=== PATIENT | female | born 1985 | race Caucasian/White ===

== ENCOUNTER 2020-09-18 10:36 | Outpatient (CLI) | payer MEDICAID, SELFPAY ==
--- NOTE | 2020-09-18 13:45 | DI.RAD_ITS ---
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 COMPARISON: No exams were available for comparison TECHNIQUE: 2D digital imaging was performed. FINDINGS: There is no evidence of fracture or dislocation. No lytic or blastic bony lesions are visible. The hip joint spaces are well maintained. The SI joints joints appear normal. IMPRESSION: Negative pelvis and right hip. DATA REPOSITORY: RADIATION DOSE DELIVERED:
== END 2020-09-18 10:56 ==
PROVIDERS: PCP Physician Assistant Medical; Visit Provider Internal Medicine
DX: M25.551 Pain in right hip (principal); C79.51 Secondary malignant neoplasm of bone; C50.919 Malignant neoplasm of unspecified site of unspecified female breast
CPT/HCPCS: 73502

== ENCOUNTER 2020-10-09 13:19 | Outpatient (REF) | payer MEDICAID, SELFPAY ==
[2020-10-09 15:12] LABS: Bilirubin Negative (Negative); Blood Negative (Negative); Clarity Turbid (Clear); Glucose Negative (Negative); Ketones Negative (Negative); Leukocyte Esterase Negative (Negative); Nitrite Negative (Negative); Specific Gravity >= 1.030 (1.005-1.025); Urobilinogen 0.2 EU/dL (Up TO 0.2); pH 5.5 (5-8)
== END 2020-10-09 13:20 | disposition home or self-care (01) ==
LOC: LBN 13:19
PROVIDERS: PCP Physician Assistant Medical; Visit Provider Radiology Radiation Oncology
DX: R39.15 Urgency of urination (principal)
CPT/HCPCS: 81003

== ENCOUNTER 2020-11-13 03:47 | Outpatient (CLI) | payer MEDICAID, SELFPAY ==
[2020-11-13 09:33] LABS: ALT 34 U/L (14-59); AST 19 U/L (15-37); Absolute Basophil Count 0.01 10^3/uL (0.0-0.2); Absolute Eosinophil Count 0.07 10^3/uL (0.0-0.7); Absolute Lymphocyte Count 0.56 10^3/uL (1.2-3.4); Absolute Monocyte Count 0.11 10^3/uL (0.1-0.8); Albumin 3.5 g/dL (3.4-5.0); Alkaline Phosphatase 82 U/L (46-116); Anion Gap 11.8 mmol/L (3-11); BUN 14 mg/dL (7-18); Basophils % 0.5; Bilirubin, Total 0.2 mg/dL (0.2-1.0); CO2 27.2 mmol/L (21.0-32.0); CREATININE 0.9 mg/dL (0.55-1.02); Calcium 8.9 mg/dL (8.5-10.1); Chloride 105 mmol/L (98-107); Eosinophils % 3.8; Glucose 109 mg/dL (74-106); HCT 31.1 % (36.0-46.0); HGB 9.7 g/dL (11.2-15.7); Lymphocytes % 30.3; MCH 27.2 pg (27.0-33.0); MCHC 31.2 % (32.0-36.0); MCV 87.1 fL (80-95); MPV 9.3 fL (8.0-11.0); Monocytes % 5.9; Neutrophils % 59.5; Nucleated RBC 0 %; Platelet Count 242 10^3/uL (130-400); Potassium 3.2 mmol/L (3.5-5.1); RBC 3.57 10^6/uL (3.93-5.22); RDW 14.5 % (11.7-14.6); RDW-SD 45.1 fL; Sodium 144 mmol/L (136-145); Total Protein 7.5 g/dL (6.4-8.2)
[2020-11-13 10:02] LABS: WBC 1.85 10^3/uL (4.4-10.8)
[2020-11-13 10:08] LABS: Diff Comment Diff Reviewed; RBC Morphology Normal
== END 2020-11-13 03:48 | disposition home or self-care (01) ==
LOC: LBO 03:47
PROVIDERS: PCP Physician Assistant Medical; Visit Provider Internal Medicine
DX: C50.912 Malignant neoplasm of unspecified site of left female breast (principal); C79.51 Secondary malignant neoplasm of bone
CPT/HCPCS: 36415; 80053; 85025

== ENCOUNTER 2020-11-20 03:40 | Outpatient (CLI) | payer MEDICAID, SELFPAY ==
[2020-11-20 10:06] LABS: Absolute Basophil Count 0.01 10^3/uL (0.0-0.2); Absolute Eosinophil Count 0.04 10^3/uL (0.0-0.7); Basophils % 0.5; Nucleated RBC 0 %
[2020-11-20 10:08] LABS: Absolute Lymphocyte Count 0.99 10^3/uL (1.2-3.4); Absolute Monocyte Count 0.16 10^3/uL (0.1-0.8); Absolute Neutrophil Count 0.78 10^3/uL (1.2-6.7); HCT 30.6 % (36.0-46.0); HGB 9.9 g/dL (11.2-15.7); MCH 27.7 pg (27.0-33.0); MCHC 32.4 % (32.0-36.0); MCV 85.7 fL (80-95); MPV 9.6 fL (8.0-11.0); Monocytes % 8.1; Neutrophils % 39.4; RBC 3.57 10^6/uL (3.93-5.22); RDW-SD 44.9 fL
[2020-11-20 10:14] LABS: WBC 1.98 10^3/uL (4.4-10.8)
[2020-11-20 10:15] LABS: Platelet Count 174 10^3/uL (130-400)
[2020-11-20 10:16] LABS: Diff Comment Agrees w/ Instrument; Microcytosis 1+; Poikilocytes 1+
[2020-11-20 10:25] LABS: ALT 35 U/L (14-59); AST 17 U/L (15-37); Alkaline Phosphatase 83 U/L (46-116); Anion Gap 9.7 mmol/L (3-11); BUN 14 mg/dL (7-18); Bilirubin, Total 0.3 mg/dL (0.2-1.0); CO2 28.3 mmol/L (21.0-32.0); Calcium 9.1 mg/dL (8.5-10.1); Chloride 104 mmol/L (98-107); Glucose 120 mg/dL (74-106); Potassium 3.9 mmol/L (3.5-5.1); Sodium 142 mmol/L (136-145); Total Protein 7.2 g/dL (6.4-8.2)
== END 2020-11-20 03:41 | disposition home or self-care (01) ==
LOC: LBO 03:40
PROVIDERS: PCP Physician Assistant Medical; Visit Provider Internal Medicine
DX: C50.912 Malignant neoplasm of unspecified site of left female breast (principal); C79.51 Secondary malignant neoplasm of bone
CPT/HCPCS: 36415; 80053; 85025

== ENCOUNTER 2020-11-27 04:07 | Outpatient (CLI) | payer MEDICAID, SELFPAY ==
[2020-11-27 12:21] LABS: Abs Immature Grans 0.01 10^3/uL (0.0-0.06); Absolute Basophil Count 0.01 10^3/uL (0.0-0.2); Absolute Eosinophil Count 0.03 10^3/uL (0.0-0.7); Absolute Lymphocyte Count 0.66 10^3/uL (1.2-3.4); Absolute Monocyte Count 0.19 10^3/uL (0.1-0.8); Absolute Neutrophil Count 1.13 10^3/uL (1.2-6.7); Basophils % 0.5; Eosinophils % 1.5; HCT 32.7 % (36.0-46.0); HGB 10.5 g/dL (11.2-15.7); Immature Grans % 0.5; Lymphocytes % 32.5; MCHC 32.1 % (32.0-36.0); MCV 87.2 fL (80-95); MPV 9.7 fL (8.0-11.0); Monocytes % 9.4; Neutrophils % 55.6; Nucleated RBC 0 %; Platelet Count 192 10^3/uL (130-400); RBC 3.75 10^6/uL (3.93-5.22); RDW 16.3 % (11.7-14.6); RDW-SD 49.1 fL; WBC 2.03 10^3/uL (4.4-10.8)
[2020-11-27 12:36] LABS: ALT 31 U/L (14-59); AST 19 U/L (15-37); Albumin 3.7 g/dL (3.4-5.0); Alkaline Phosphatase 77 U/L (46-116); Anion Gap 9.7 mmol/L (3-11); BUN 11 mg/dL (7-18); Bilirubin, Total 0.2 mg/dL (0.2-1.0); CO2 26.3 mmol/L (21.0-32.0); CREATININE 0.7 mg/dL (0.55-1.02); Calcium 8.9 mg/dL (8.5-10.1); Chloride 105 mmol/L (98-107); Glucose 180 mg/dL (74-106); Potassium 3.6 mmol/L (3.5-5.1); Sodium 141 mmol/L (136-145); Total Protein 7.2 g/dL (6.4-8.2)
== END 2020-11-27 04:08 | disposition home or self-care (01) ==
LOC: LBO 04:07
PROVIDERS: PCP Physician Assistant Medical; Visit Provider Internal Medicine
DX: C50.912 Malignant neoplasm of unspecified site of left female breast (principal); C77.9 Secondary and unspecified malignant neoplasm of lymph node, unspecified; Z79.899 Other long term (current) drug therapy
CPT/HCPCS: 36415; 80053; 85025

== ENCOUNTER 2020-12-03 13:35 | Outpatient (CLI) | payer MEDICAID, SELFPAY ==
[2020-12-03 13:54] LABS: Absolute Basophil Count 0.02 10^3/uL (0.0-0.2); Absolute Eosinophil Count 0.06 10^3/uL (0.0-0.7); Absolute Lymphocyte Count 0.77 10^3/uL (1.2-3.4); Absolute Monocyte Count 0.24 10^3/uL (0.1-0.8); Absolute Neutrophil Count 1.25 10^3/uL (1.2-6.7); Basophils % 0.9; Eosinophils % 2.6; HCT 33.3 % (36.0-46.0); HGB 10.6 g/dL (11.2-15.7); Lymphocytes % 32.9; MCH 28.1 pg (27.0-33.0); MCHC 31.8 % (32.0-36.0); MCV 88.3 fL (80-95); MPV 9.5 fL (8.0-11.0); Monocytes % 10.3; Neutrophils % 53.3; Nucleated RBC 0 %; Platelet Count 259 10^3/uL (130-400); RBC 3.77 10^6/uL (3.93-5.22); RDW 17.1 % (11.7-14.6); RDW-SD 55.1 fL; WBC 2.34 10^3/uL (4.4-10.8)
[2020-12-03 14:13] LABS: ALT 69 U/L (14-59); AST 91 U/L (15-37); Albumin 3.8 g/dL (3.4-5.0); Alkaline Phosphatase 83 U/L (46-116); Anion Gap 9.6 mmol/L (3-11); BUN 15 mg/dL (7-18); Bilirubin, Total 0.3 mg/dL (0.2-1.0); CO2 27.4 mmol/L (21.0-32.0); CREATININE 0.9 mg/dL (0.55-1.02); Calcium 9.1 mg/dL (8.5-10.1); Chloride 106 mmol/L (98-107); Glucose 120 mg/dL (74-106); Potassium 3.9 mmol/L (3.5-5.1); Sodium 143 mmol/L (136-145); Total Protein 7.4 g/dL (6.4-8.2)
== END 2020-12-03 13:36 | disposition home or self-care (01) ==
LOC: LBO 13:37
PROVIDERS: PCP Physician Assistant Medical; Visit Provider Internal Medicine
DX: C50.912 Malignant neoplasm of unspecified site of left female breast (principal); C79.51 Secondary malignant neoplasm of bone
CPT/HCPCS: 36415; 80053; 85025

== ENCOUNTER 2021-01-02 13:37 | Outpatient (CLI) | payer MEDICAID, SELFPAY ==
[2021-01-02 13:57] LABS: Abs Immature Grans 0.02 10^3/uL (0.0-0.06); Absolute Basophil Count 0.03 10^3/uL (0.0-0.2); Absolute Eosinophil Count 0.09 10^3/uL (0.0-0.7); Absolute Lymphocyte Count 0.82 10^3/uL (1.2-3.4); Absolute Monocyte Count 0.23 10^3/uL (0.1-0.8); Absolute Neutrophil Count 2.22 10^3/uL (1.2-6.7); Basophils % 0.9; Eosinophils % 2.6; HCT 31.7 % (36.0-46.0); HGB 10.6 g/dL (11.2-15.7); Immature Grans % 0.6; MCHC 33.4 % (32.0-36.0); MCV 86.6 fL (80-95); MPV 9.3 fL (8.0-11.0); Monocytes % 6.7; Neutrophils % 65.2; Nucleated RBC 0 %; Platelet Count 218 10^3/uL (130-400); RBC 3.66 10^6/uL (3.93-5.22); RDW 16.1 % (11.7-14.6); RDW-SD 51.8 fL; WBC 3.41 10^3/uL (4.4-10.8)
[2021-01-02 14:09] LABS: ALT 46 U/L (14-59); AST 18 U/L (15-37); Albumin 3.7 g/dL (3.4-5.0); Alkaline Phosphatase 86 U/L (46-116); Anion Gap 11.9 mmol/L (3-11); BUN 12 mg/dL (7-18); Bilirubin, Total 0.2 mg/dL (0.2-1.0); CO2 26.1 mmol/L (21.0-32.0); CREATININE 1.4 mg/dL (0.55-1.02); Calcium 8.7 mg/dL (8.5-10.1); Chloride 104 mmol/L (98-107); Estimated GFR 42.55 (mL/min/1.73m2); Glucose 120 mg/dL (74-106); Potassium 3.8 mmol/L (3.5-5.1); Sodium 142 mmol/L (136-145); Total Protein 7.5 g/dL (6.4-8.2)
== END 2021-01-02 13:38 | disposition home or self-care (01) ==
LOC: LBO 13:42
PROVIDERS: PCP Physician Assistant Medical; Visit Provider Internal Medicine
DX: C50.912 Malignant neoplasm of unspecified site of left female breast (principal); C79.51 Secondary malignant neoplasm of bone
CPT/HCPCS: 36415; 80053; 85025

== ENCOUNTER 2021-02-05 01:02 | Outpatient (CLI) | payer MEDICAID, SELFPAY ==
--- NOTE | 2021-02-05 13:10 | DI.RAD_ITS ---
Exam(s) XR HIP RT COMPLETE AP PELVIS EXAM: XR HIP RT COMPLETE AP PELVIS INDICATION: DIFFUSE KNOWN METASTATIC DISEASE TO PELVIS,RT ACETAB AND RT FEMUR,SURVEILL. COMPARISON: CR XR HIP RT COMPLETE AP PELVIS from 09/18/2020 TECHNIQUE: 2D digital imaging was performed. FINDINGS: There is a mottled appearance of the right superior and inferior pubic rami and acetabulum suggestive of metastatic disease. There is a new round sclerotic focus in the right femoral neck suspicious fo r metastasis. There are healing pathologic nondisplaced fractures seen in the right superior and inf erior pubic rami. The sacroiliac joints and symphysis pubis are intact. No other acute or healing f ractures or dislocations are appreciated. The soft tissues are unremarkable. IMPRESSION: 1. Findings of metastatic disease involving the right hemipelvis and the right femur. 2. Pathologic fractures involving the right superior and inferior pubic rami with evidence of some he aling. DATA REPOSITORY: RADIATION DOSE DELIVERED:
== END 2021-02-05 01:22 ==
PROVIDERS: PCP Physician Assistant Medical; Visit Provider Nurse Practitioner
DX: C79.51 Secondary malignant neoplasm of bone (principal); C80.1 Malignant (primary) neoplasm, unspecified; M84.451D Pathological fracture, right femur, subsequent encounter for fracture with routine healing
CPT/HCPCS: 73502

== ENCOUNTER 2021-02-05 02:29 | Outpatient (CLI) | payer MEDICAID, SELFPAY ==
[2021-02-05 13:40] LABS: HCT 31.5 % (36.0-46.0); HGB 10.4 g/dL (11.2-15.7); MCH 29.5 pg (27.0-33.0); MCV 89.5 fL (80-95); MPV 9.3 fL (8.0-11.0); Nucleated RBC 0 %; Platelet Count 292 10^3/uL (130-400); RBC 3.52 10^6/uL (3.93-5.22); RDW 14.8 % (11.7-14.6); RDW-SD 47.7 fL; WBC 3.28 10^3/uL (4.4-10.8)
[2021-02-05 13:53] LABS: ALT 30 U/L (14-59); AST 18 U/L (15-37); Albumin 4.2 g/dL (3.4-5.0); Alkaline Phosphatase 97 U/L (46-116); Anion Gap 11.7 mmol/L (3-11); BUN 14 mg/dL (7-18); Bilirubin, Total 0.5 mg/dL (0.2-1.0); CO2 27.3 mmol/L (21.0-32.0); CREATININE 1.2 mg/dL (0.55-1.02); Calcium 10.2 mg/dL (8.5-10.1); Chloride 102 mmol/L (98-107); Estimated GFR 50.83 (mL/min/1.73m2); Glucose 105 mg/dL (74-106); Potassium 3.9 mmol/L (3.5-5.1); Sodium 141 mmol/L (136-145); Total Protein 8.3 g/dL (6.4-8.2)
[2021-02-05 13:57] LABS: Absolute Lymphocyte Count 1.05 10^3/uL (1.2-3.4); Absolute Neutrophil Count 2.03 10^3/uL (1.2-6.7)
[2021-02-05 13:58] LABS: Diff Comment Manual Differential; RBC Morphology Normal
== END 2021-02-05 02:30 | disposition home or self-care (01) ==
LOC: LBO 02:29
PROVIDERS: PCP Physician Assistant Medical; Visit Provider Internal Medicine
DX: C50.912 Malignant neoplasm of unspecified site of left female breast (principal); C79.51 Secondary malignant neoplasm of bone
CPT/HCPCS: 36415; 80053; 85025

== ENCOUNTER 2021-03-05 04:10 | Outpatient (CLI) | payer MEDICAID, SELFPAY ==
[2021-03-05 13:05] LABS: Abs Immature Grans 0.08 10^3/uL (0.0-0.06); Absolute Basophil Count 0.03 10^3/uL (0.0-0.2); Absolute Eosinophil Count 0.18 10^3/uL (0.0-0.7); Absolute Lymphocyte Count 0.94 10^3/uL (1.2-3.4); Absolute Monocyte Count 0.65 10^3/uL (0.1-0.8); Basophils % 0.5; Eosinophils % 3.3; HCT 33.6 % (36.0-46.0); HGB 11.2 g/dL (11.2-15.7); Immature Grans % 1.5; Lymphocytes % 17.2; MCH 29.6 pg (27.0-33.0); MCHC 33.3 % (32.0-36.0); MCV 88.9 fL (80-95); MPV 9.4 fL (8.0-11.0); Monocytes % 11.9; Neutrophils % 65.6; Nucleated RBC 0 %; Platelet Count 406 10^3/uL (130-400); RBC 3.78 10^6/uL (3.93-5.22); RDW 13.5 % (11.7-14.6); RDW-SD 43.8 fL; WBC 5.48 10^3/uL (4.4-10.8)
[2021-03-05 13:17] LABS: ALT 117 U/L (14-59); AST 77 U/L (15-37); Albumin 3.9 g/dL (3.4-5.0); Alkaline Phosphatase 134 U/L (46-116); Anion Gap 12.4 mmol/L (3-11); BUN 29 mg/dL (7-18); Bilirubin, Total 0.5 mg/dL (0.2-1.0); CO2 28.6 mmol/L (21.0-32.0); CREATININE 1.6 mg/dL (0.55-1.02); Calcium 9.9 mg/dL (8.5-10.1); Chloride 95 mmol/L (98-107); Estimated GFR 36.47 (mL/min/1.73m2); Glucose 156 mg/dL (74-106); Potassium 3.4 mmol/L (3.5-5.1); Sodium 136 mmol/L (136-145); Total Protein 8.5 g/dL (6.4-8.2)
== END 2021-03-05 04:11 | disposition home or self-care (01) ==
LOC: LBO 04:10
PROVIDERS: PCP Physician Assistant Medical; Visit Provider Internal Medicine
DX: C50.912 Malignant neoplasm of unspecified site of left female breast (principal); C79.51 Secondary malignant neoplasm of bone
CPT/HCPCS: 36415; 80053; 85025

== ENCOUNTER 2021-03-19 11:04 | Inpatient (IN) | payer MEDICAID, SELFPAY ==
[2021-03-19] VITALS (24 sets, daily range): BP systolic 82–110; BP diastolic 42–63; PULSE 72–92; RESP 8–22; TEMP 36.3–36.7; O2SAT 97–100
[2021-03-19 12:34] LABS: Abs Immature Grans 0.01 10^3/uL (0.0-0.06); Absolute Eosinophil Count 0.05 10^3/uL (0.0-0.7); Absolute Lymphocyte Count 0.64 10^3/uL (1.2-3.4); Absolute Monocyte Count 0.22 10^3/uL (0.1-0.8); Absolute Neutrophil Count 2.25 10^3/uL (1.2-6.7); Eosinophils % 1.6; HGB 9.2 g/dL (11.2-15.7); Immature Grans % 0.3; Lymphocytes % 20.2; MCH 29.6 pg (27.0-33.0); MCHC 34.1 % (32.0-36.0); MCV 86.8 fL (80-95); MPV 9.8 fL (8.0-11.0); Monocytes % 6.9; Nucleated RBC 0 %; Platelet Count 178 10^3/uL (130-400); RBC 3.11 10^6/uL (3.93-5.22); RDW 12.7 % (11.7-14.6); RDW-SD 40.6 fL; WBC 3.17 10^3/uL (4.4-10.8)
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
[2021-03-19 13:00] LABS: ALT 33 U/L (14-59); AST 22 U/L (15-37); Albumin 4.2 g/dL (3.4-5.0); Alkaline Phosphatase 115 U/L (46-116); Anion Gap 13.5 mmol/L (3-11); Bilirubin, Total 0.4 mg/dL (0.2-1.0); CO2 33.5 mmol/L (21.0-32.0); Chloride 84 mmol/L (98-107); Estimated GFR 4.03 (mL/min/1.73m2); Glucose 161 mg/dL (74-106); Sodium 131 mmol/L (136-145); Total Protein 8.4 g/dL (6.4-8.2)
[2021-03-19 13:07] LABS: BUN 91 mg/dL (7-18); CREATININE 10.8 mg/dL (0.55-1.02); Potassium 2.9 mmol/L (3.5-5.1)
[2021-03-19 13:08] LABS: Lipase 29 U/L (73-393)
--- NOTE | 2021-03-19 13:15 | DI.CT_ITS ---
Exam(s) CT CHEST/ABD/PEL WO EXAM: CT CHEST/ABD/PEL WO CLINICAL HISTORY: r/o pneumonia, sbo, worsening mets TECHNIQUE: Imaging Protocol: Axial computed tomography images with coronal and sagittal reformatted images were created and reviewed CONTRAST MATERIAL: Imaging Protocol: Axial computed tomography images with coronal and sagittal refo rmatted images were created and reviewed. COMPARISON: No exams were available for comparison FINDINGS: CHEST: Tracheobronchial tree: Patent where visualized. Mediastinum and Harika: No dominant adenopathy or fluid collection. Pulmonary parenchyma: Multifocal interstitial infiltrates. Findings are most marked in the right upp er and right lower lobes. Several noncalcified pulmonary nodules are present. Given the patient's h istory metastatic disease should be considered. A superimposed pneumonia cannot be excluded. No arc hitectural distortion. Pleura: No effusion or pneumothorax. Heart: The heart is not dilated. No coronary artery calcifications are seen. No significant pericardi al effusion. Aorta: Thoracic aorta non-dilated. Lymph nodes: Within normal limits. Bones:Multifocal sclerotic metastatic disease. No acute fracture. Soft tissues: Left mastectomy. ABDOMEN: Lack of IV contrast does limit evaluation of the abdominal pelvic organs. Liver: There are areas of decreased attenuation in the liver suspicious for metastases. The liver is enlarged measuring 19 cm in length. Gallbladder and Biliary Tract: There is diffuse thickening of the wall of the gallbladder. No biliar y ductal dilatation. Acute cholecystitis cannot be excluded. Gallbladder ultrasound may be consider ed for further evaluation. Pancreas: Normal density, no abnormal calcifications or inflammatory process. Spleen: Normal. Adrenals: No masses seen. Kidneys: There is dilatation of the right renal collecting system into the pelvis. There is soft tis shakila seen in the right retroperitoneum which appears to be causing the obstruction. This may be posts urgical scarring versus metastatic disease. No radiodense stones or obstructive uropathy. No masses seen. Abdominal Aorta: Abdominal portion non-dilated. Bowel: No obstruction or bowel wall thickening. No evidence of appendicitis. There is a left lower q uadrant ostomy. Peritoneal Cavity: There is infiltration in the mesentery. Soft tissue thickening is seen in the ome ntum suspicious for metastatic disease. There is a question of a focal fluid collection anterior to the pelvis measuring 1.4 x 3.5 cm. This may represent an abscess. Lymph Nodes: Within normal limits. Bones: Findings of sclerotic metastatic disease are present in the lumbar spine and pelvis. There ar e subacute pathologic fractures of the right superior and inferior pubic rami. Soft Tissues: Unremarkable. PELVIS: Bladder: Mild thickening of the wall of the urinary bladder. An inflammatory infectious process shou ld be considered. Reproductive Organs: There is air seen within the vagina. 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 Lymph Nodes: Within normal limits. Bones: Findings of metastatic disease. IMPRESSION: 1. Medic static disease in the chest abdomen and pelvis. Findings include pulmonary nodules, sclerot ic metastases and mesenteric/omental metastatic disease. 2. Status post left mastectomy. 3. Left lower quadrant ostomy. 4. Right hydronephrosis which appears secondary to retroperitoneal soft tissue which may reflect meta static disease or postsurgical change. 5. Interstitial infiltrates. While this may represent metastatic disease, superimposed pneumonia can not be excluded. 6. Gallbladder wall thickening. Acute cholecystitis cannot be excluded. Gallbladder ultrasound may be considered for further evaluation. 7. Subacute pathologic fractures involving right superior and inferior pubic rami. 8. Heterogeneous appearance of the liver. Hepatic metastases should be considered. 9. Air seen within the vagina. This may be consistent with the patient's known rectovaginal fistula. 10. Results of this exam have been verbally communicated with provider. RADIATION DOSE DELIVERED: 879.51mGy.cm Total DLP 879.51mGy.cm Total DLP DATA REPOSITORY: All CT scans at this facility are submitted to the National Radiology Data Registry (NRDR) Dose Index Registry (DIR) with the [employer] (ACR). RADIATION OPTIMIZATION: All CT scans at this facility use at least one of these dose optimization te chniques: automated exposure control; mA and/or kV adjustment per patient size (includes targeted exa ms where dose is matched to clinical indication); or iterative reconstruction.
[2021-03-19] MEDS: Normal Saline 1,000 ML 1000 ML IV (14:04)
[2021-03-19] MEDS: FAMOTIDINE 20 MG/50 ML BAG 200 MG IVPB (14:08)
[2021-03-19] MEDS: POTASSIUM CHLORIDE 20 MEQ/100 ML BAG 50 MEQ IVPB (15:22)
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
[2021-03-19 17:05] LABS: Bilirubin Negative (Negative); Blood Negative (Negative); Clarity Sl Cloudy (Clear); Glucose Negative (Negative); Ketones Negative (Negative); Leukocyte Esterase Negative (Negative); Nitrite Negative (Negative); Specific Gravity 1.025 (1.005-1.025); Urobilinogen 0.2 EU/dL (Up TO 0.2); pH 5.5 (5-8)
[2021-03-19 17:19] LABS: Bacteria Moderate HPF (Negative); C & S Indicated? No/Sq. Contamination; Casts 5-10 Hyaline LPF (Negative); Crystals Negative HPF (Negative); Epithelial Cells Many HPF (Negative); Mucus Negative (Negative); Other Cells Few Yeast (Negative); RBC 0-2 HPF (0-2)
[2021-03-19] MEDS: MORPHine 4 MG/ML SYR IVP ×2 (17:36→23:52)
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
[2021-03-19 20:03] LABS: Anion Gap 8.9 mmol/L (3-11); CO2 33.1 mmol/L (21.0-32.0); Calcium 8.6 mg/dL (8.5-10.1); Chloride 94 mmol/L (98-107); Estimated GFR 4.97 (mL/min/1.73m2); Glucose 76 mg/dL (74-106); Potassium 3.2 mmol/L (3.5-5.1); Sodium 136 mmol/L (136-145)
[2021-03-19 20:07] LABS: BUN 82 mg/dL (7-18)
[2021-03-19 21:58] LABS: COVID-19 PCR Negative (Negative)
[2021-03-19] MEDS: LORazepam 1 MG TAB PO (22:50)
[2021-03-19] MEDS: hydrOXYzine HCL 50 MG TAB PO (22:51)
[2021-03-19] MEDS: Heparin 5,000 UNITS/ML VIAL 5000 UNITS SC (22:53)
[2021-03-19] MEDS: Melatonin 3 MG TAB 9 MG PO (23:17)
[2021-03-19] MEDS: fentaNYL 25 MCG PATCH TD (23:50)
[2021-03-19] MEDS: Normal Saline 1,000 ML 150 ML IV (23:52)
[2021-03-20] MEDS: Patch Removal 1 EACH TP (00:12)
[2021-03-20] MEDS: Heparin 5,000 UNITS/ML VIAL 5000 UNITS SC (04:13)
[2021-03-20 04:35] VITALS: BP 86/52; PULSE 76; RESP 16; TEMP 36.5; O2SAT 97
[2021-03-20] MEDS: Normal Saline 1,000 ML 150 ML IV ×2 (06:52→18:46)
[2021-03-20 07:12] LABS: Absolute Eosinophil Count 0.04 10^3/uL (0.0-0.7); Absolute Lymphocyte Count 0.46 10^3/uL (1.2-3.4); Absolute Monocyte Count 0.12 10^3/uL (0.1-0.8); Absolute Neutrophil Count 1.03 10^3/uL (1.2-6.7); Eosinophils % 2.4; HGB 7.2 g/dL (11.2-15.7); Lymphocytes % 27.9; MCH 29.6 pg (27.0-33.0); MCHC 32.7 % (32.0-36.0); MCV 90.5 fL (80-95); MPV 10.4 fL (8.0-11.0); Monocytes % 7.3; Neutrophils % 62.4; Nucleated RBC 0 %; Platelet Count 119 10^3/uL (130-400); RBC 2.43 10^6/uL (3.93-5.22); RDW 12.9 % (11.7-14.6); RDW-SD 42.8 fL
[2021-03-20 07:35] LABS: ALT 26 U/L (14-59); AST 18 U/L (15-37); Albumin 3.2 g/dL (3.4-5.0); Alkaline Phosphatase 89 U/L (46-116); Anion Gap 8.6 mmol/L (3-11); BUN 75 mg/dL (7-18); Bilirubin, Total 0.2 mg/dL (0.2-1.0); CO2 31.4 mmol/L (21.0-32.0); Chloride 100 mmol/L (98-107); Estimated GFR 6.23 (mL/min/1.73m2); Glucose 95 mg/dL (74-106); Potassium 3.1 mmol/L (3.5-5.1); Sodium 140 mmol/L (136-145); Total Protein 6.5 g/dL (6.4-8.2); WBC 1.65 10^3/uL (4.4-10.8)
[2021-03-20 07:36] LABS: Diff Comment Diff Reviewed; RBC Morphology Normal
[2021-03-20 07:38] LABS: CREATININE 7.4 mg/dL (0.55-1.02)
[2021-03-20 08:39] VITALS: BP 91/54; PULSE 82; RESP 18; TEMP 36.2; O2SAT 95
[2021-03-20] MEDS: Venlafaxine 37.5 MG CAPCR 75 MG PO (09:02)
[2021-03-20] MEDS: Letrozole 2.5 MG TAB PO (09:03)
[2021-03-20] MEDS: Normal Saline Flush 10 ML SYR IVP ×2 (09:03→20:55)
[2021-03-20] MEDS: Methylphenidate 10 MG TAB 20 MG PO ×2 (09:03→15:21)
[2021-03-20] MEDS: Pantoprazole 40 MG VIAL IVP (09:03)
[2021-03-20] MEDS: Venlafaxine 150 MG CAPCR PO (09:03)
[2021-03-20] MEDS: Methadone Liquid 10 MG/ML 51 MG PO (09:05)
--- NOTE | 2021-03-20 09:38 | NUR.NOTE ---
PT requested that she get washed up when she gets back from [facility] Nursing Note:
--- NOTE | 2021-03-20 10:50 | NUR.NOTE ---
Nursing Note:Gave report to Vivi at [facility] interventional radiology at 0915.
--- NOTE | 2021-03-20 10:58 | PDOC.CMIN ---
- If Service Date Differs Date of service: 03/20/21 Time of Service: 10:58 Care Management Initial Assess REASON FOR HOSPITALIZATION:: MIKE, Stage IV metastatic breast cancer PAST MEDICAL HISTORY/PAST SURGICAL HISTORY:: Medical History. Abdominal carcinomatosis. Abnormal finding present on diagnostic imaging of uterus. Abnormal uterine bleeding (AUB). Alcohol dependence in remission. Attention deficit hyperactivity disorder (ADHD), combined type. Bilious vomiting with nausea. Breast cancer metastasized to multiple sites. Cancer related pain. Carpal tunnel syndrome of right wrist. Cervical high risk human papillomavirus (HPV) DNA test positive. delivery delivered. [place] lesion of lung. Colostomy in place. Colovaginal fistula. Constipation. Generalized anxiety disorder. Goals of care, counseling/discussion. History of abnormal cervical Pap smear. History of dental abscess. History of HPV infection. Hypotension. has had cardiac w/u. no etiology found. Insomnia. Jaw pain. Lesion of ulnar nerve. Lobular carcinoma of breast, stage 4. Low grade squamous intraepithelial lesion (LGSIL) on Papanicolaou smear of cervix. Malignant neoplasm of left female breast. Malignant neoplasm of upper-outer quadrant of left female breast. Methadone maintenance therapy patient. Nausea. PALB2-related breast cancer. Palliative care patient. Pelvic fracture. Poor dentition. Postmastectomy lymphedema syndrome. Primary cancer of left breast with stage 2 darren metastasis per [place] [employer] Committee on Cancer 7th edition (N2). Seasonal allergic rhinitis. Secondary malignant neoplasm of bone. Smokes 1 to 5 cigarettes per day. Stage IV breast cancer in female. initial diagnosis 2017; first lump found 2015. mets to lung, bones, LN. Tobacco user. Vaginal cuff dehiscence. Varicose veins of legs. Surgical History. H/O exploratory laparotomy. History of left total mastectomy. History of partial colectomy. History of tubal ligation. Status post ANIA-BSO PREVIOUS FUNCTIONAL STATUS/SOCIAL/FAMILY SUPPORTS:: Shanell lives in [facility], gets support from [place], who accompanies her. Also in [facility] treatment, on methadone, at 51 mg daily. First discovered breast lump soon after her 6 yo daughter was born. Diagnosed 2 years later. None of her children currently living with her. Oldest daughter, Mervat, is on her own. Son Kieran lives with his father, as does daughter Serenity. Older 2 understand Shanell will likely within a year or less from her breast cancer. Youngest child, Veronica, is just 6 yo and doesn't know how sick her mother is. She is being followed closely by Palliative care. She is independent with ADL's currently. CURRENT FUNCTIONAL STATUS:: Shanell was transferred to at [facility] for a nephrostomy tube today, therefore CM was unable to meet with her. Per report, she has a trip planned to [place] this weekend, and she will go on Thursday, regardless of what is happening with her medically. She stated [facility] from Palliative Care. CM will continue to follow. ADVANCE DIRECTIVES:: None on file. Has patient been provided with info about the portal/API?: Yes Did the patient sign up for the portal?: Yes (active) CODE STATUS:: DNR/DNI INSURANCE COVERAGE / FINANCIAL ISSUES:: [employer] CURRENT HOME/COMMUNITY SERVICES/EQUIPMENT:: Shanell currently lives in a [facility] in [place], who provides support. She is in the [facility] program as well. PRIMARY CARE PHYSICIAN:: Chata Carrizales POTENTIAL DISCHARGE NEEDS:: Follow up with Palliative care/Hospice. PATIENT/FAMILY EDUCATION NEEDS:: Review discharge instructions, discussion of self care needs and goals of care. ANTICIPATED BARRIERS TO DISCHARGE:: None identified. Shanell has stated that she will be discharged by Thursday in order to make it on her trip. TRANSPORTATION:: Via private vehicle by family. PLAN:: Anticipate Shanell will return home when medically cleared. Her mother will drive her via private vehicle. She will be closely followed by the Palliative care/Hospice team. CM will continue to follow and support discharge planning considerations.
[2021-03-20 14:30] VITALS: BP 95/60; PULSE 74; RESP 16; TEMP 36.4; O2SAT 99
[2021-03-20] MEDS: MORPHine 4 MG/ML SYR IVP ×3 (15:20→22:21)
[2021-03-20] MEDS: Potassium Chloride 20 MEQ TABCR PO (15:21)
--- NOTE | 2021-03-20 15:38 | NUR.NOTE ---
Nursing Note: Patient returned from [facility] post nephrostomy tube placement Patient returned via stretcher compainied by EMS Patient is alert and ox3 Patient states her pain level is 7/10 (chronic) and the site of the nephrostomy tube hurts not rateable. Patient nephrostomy tube is draining dark red blood there is a small amount in the bag Patient was able to walk to her bed from the stretcher Patient settled in her bed
--- NOTE | 2021-03-20 16:55 | PGE_ITS ---
Date of Service Date of service: 03/20/21 Time of Service: 16:55 Assessment and Plan Assessment and plan (1) MIKE (acute kidney injury): Status: Acute Assessment and plan: Multifactorial, due to prerenal and obstructive causes (R hydroureter/hydronephrosis). S/p R nephrostomy. Intensify IVF. Replete lytes. Recheck Cr in am. (2) Hydronephrosis due to obstruction of ureter: Status: Acute Assessment and plan: S/p nephrostomy today. Tolerated well. Monitor Cr. (3) Pancytopenia: Status: Acute Assessment and plan: D/c heparin. Consider abx and blood transfusion. Recheck CBC with Diff in am (4) Hypokalemia: Status: Acute Assessment and plan: Replete and recheck in am (5) Stage IV breast cancer in female: Status: Chronic Assessment and plan: Palliative care on board The patient's target is to make it to her end of life beach trip this weekend. (6) DVT prophylaxis: Status: Acute Assessment and plan: D/c heparin SC due to decreasing plt count. (7) Discharge planning issues: Status: Acute Assessment and plan: DNR/DNI Anticipate discharge tomorrow Subjective Subjective Interval history since last seen: S/p R nephrostomy tube. Tolerated well. No pain. Agrees to stay in the hospital one more night for hydration. States she has been having problems with fainting at home and is considering just staying in a wheelchair. Denies dizziness, chest pain, shortness of breath, nausea. Hungry. Would like her dinner tray. Requests vitals not be checked at night. Exam Narrative Exam Narrative: General: Pleasant female who looks comfortable in bed HEENT: EOMI, dry MM Heart: RRR, no m/r/g Lungs: CTAB Abdomen: soft; LLQ ostomy with liquid brown output, nondistended Extremities: no edema BLE's Objective Last Vital Signs Temp 36.4 C L 03/20/21 14:30 Pulse 74 03/20/21 14:30 Resp 16 03/20/21 14:30 BP 95/60 L 03/20/21 14:30 Pulse Ox 99 03/20/21 14:30 Laboratory Results - last 24 hr 03/19/21 03/19/21 03/19/21 16:47 19:30 19:39 WBC RBC Hgb Hct MCV MCH MCHC RDW Plt Count MPV Immature Gran % Neutrophils % Lymphocytes % Monocytes % Eosinophils % Basophils % Nucleated RBC % Absolute Neutrophils Absolute Lymphocytes Absolute Monocytes Absolute Eosinophils Absolute Basophils RBC Morphology Sodium 136 Potassium 3.2 L Chloride 94 L Carbon Dioxide 33.1 H Anion Gap 8.9 BUN 82 H* Creatinine 9.0 H* Estimated GFR/1.73 m2 4.97 Glucose 76 D Calcium 8.6 Magnesium Total Bilirubin AST ALT Alkaline Phosphatase Total Protein Albumin Urine Color Yellow Urine Clarity Sl Cloudy Urine pH 5.5 Ur Specific [place] 1.025 Urine Protein 30 H Urine Ketones Negative Urine Blood Negative Urine Nitrite Negative Urine Bilirubin Negative Urine Urobilinogen 0.2 Ur Leukocyte Esterase Negative Urine RBC 0-2 Urine WBC 3-5 Ur Epithelial Cells Many Urine Crystals Negative Urine Bacteria Moderate Urine Casts 5-10 Hyaline Urine Mucus Negative Urine Other Few Yeast Ur Culture Indicated? No/Sq. Contamination Urine Glucose Negative COVID-19 Source NASOPHARYX SARS-CoV-2 (PCR) Negative 03/20/21 03/20/21 03/20/21 06:42 06:42 06:42 WBC 1.65 L* D RBC 2.43 L Hgb 7.2 L Hct 22.0 L MCV 90.5 D MCH 29.6 MCHC 32.7 RDW 12.9 Plt Count 119 L MPV 10.4 Immature Gran % 0.0 Neutrophils % 62.4 Lymphocytes % 27.9 Monocytes % 7.3 Eosinophils % 2.4 Basophils % 0.0 Nucleated RBC % 0 Absolute Neutrophils 1.03 L Absolute Lymphocytes 0.46 L Absolute Monocytes 0.12 Absolute Eosinophils 0.04 Absolute Basophils 0.00 RBC Morphology Normal Sodium 140 Potassium 3.1 L Chloride 100 Carbon Dioxide 31.4 Anion Gap 8.6 BUN 75 H Creatinine 7.4 H* Estimated GFR/1.73 m2 6.23 Glucose 95 Calcium 9.0 Magnesium 2.0 Total Bilirubin 0.2 AST 18 ALT 26 Alkaline Phosphatase 89 Total Protein 6.5 Albumin 3.2 L Urine Color Urine Clarity Urine pH Ur Specific [place] Urine Protein Urine Ketones Urine Blood Urine Nitrite Urine Bilirubin Urine Urobilinogen Ur Leukocyte Esterase Urine RBC Urine WBC Ur Epithelial Cells Urine Crystals Urine Bacteria Urine Casts Urine Mucus Urine Other Ur Culture Indicated? Urine Glucose COVID-19 Source SARS-CoV-2 (PCR)
[2021-03-20 18:12] VITALS: BP 89/56; PULSE 92; RESP 16; TEMP 36.6; O2SAT 99
--- NOTE | 2021-03-20 18:40 | NUR.NOTE ---
Nursing Note: Patient has has multiple visitors in and has asked that we insert the rainey after his visitors leave
[2021-03-20] MEDS: Melatonin 3 MG TAB 9 MG PO (20:56)
[2021-03-20] MEDS: LORazepam 1 MG TAB PO (20:56)
[2021-03-20] MEDS: hydrOXYzine HCL 50 MG TAB PO (20:57)
[2021-03-21] MEDS: Normal Saline 1,000 ML 150 ML IV (01:21)
[2021-03-21] MEDS: Letrozole 2.5 MG TAB PO (07:22)
[2021-03-21] MEDS: Venlafaxine 37.5 MG CAPCR 75 MG PO (07:23)
[2021-03-21] MEDS: Normal Saline Flush 10 ML SYR IVP ×3 (07:23→13:14)
[2021-03-21] MEDS: Methylphenidate 10 MG TAB 20 MG PO ×2 (07:23→11:52)
[2021-03-21] MEDS: Venlafaxine 150 MG CAPCR PO (07:23)
[2021-03-21] MEDS: MORPHine 4 MG/ML SYR IVP ×3 (07:25→13:14)
[2021-03-21] MEDS: Pantoprazole 40 MG VIAL IVP (07:26)
[2021-03-21] MEDS: Methadone Liquid 10 MG/ML 51 MG PO (07:43)
[2021-03-21 07:50] VITALS: BP 104/59; PULSE 80; RESP 18; TEMP 36.8; O2SAT 95
[2021-03-21] MEDS: Cefpodoxime 200 MG TAB PO (09:53)
--- NOTE | 2021-03-21 10:13 | NUR.NOTE ---
PT stated that she had a blow out with her ileostomy this morning and got pretty cleaned up with that this morning. PT also complaining of pain and asking for morphine. RN notified. Nursing Note:
[2021-03-21] MEDS: Potassium Chloride 10 MEQ CAPCR PO (10:31)
[2021-03-21] MEDS: Acetaminophen 325 MG TAB 650 MG PO (10:31)
--- NOTE | 2021-03-21 10:35 | CHAPLAIN ---
I met Shanell this morning. She was out of the hospital yesterday for a procedure. Shanell was very marianela about telling me about her diagnosis and short (less than a year) prognosis. She has plans to go with her mom, step dad and brother to [facility] on Thursday to spend time at the [place]. She has also made plans to go with her parents, eldest daughter (20) and young (6) daughter, Veronica, to [facility] soon,and said the tickets have been purchased for them. She would like to plan a day with her 16 year-old son as well. Shanell said she is not afraid of dying. She is very proud of being sober for over a year now and lives in a [facility] supportive assisted and now attends [employer]. This has improved her life tremendously, Shanell said, and she has cecilia that God is with her through all of this. Shanell has purchased a locket in which someone will put some of Shnaell's ashes for [place]. She has also recorded her voice singing, You Are My [place], and that will be placed in a [facility] so [facility]'s voice at night before she goes to bed. Shanell seems accepting of her prognosis, and wants to be out of pain. She was at [facility] in [place] for a while and said she got to know the inside steward/stewardess there, . Eulogio Alexis, and enjoyed meeting her and felt Eulogio was very helpful.
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
[2021-03-21 11:46] VITALS: BP 95/62; PULSE 86; RESP 12; TEMP 38; O2SAT 95
[2021-03-21 13:00] VITALS: TEMP 37.7
--- NOTE | 2021-03-21 16:47 | CMDISCH_ITS ---
- If Service Date Differs Date of service: 03/21/21 Time of Service: 16:47 LACE Index Scoring Tool - Questions: Length of Stay (in days): 2 Acuity (Admit via E.D.?): Yes Comorbidities: Metastatic Solid Tumor E.D. Visits: 1 - Answers: Total Score: 11 Risk of Readmission: High Risk Care Management Discharge Reason for Hospitalization: MIKE, Stage IV metastatic breast cancer Discharge Plan: Shanell will return home today with a resumption of services through [facility] [place]. RUFINO provided her with a last dose letter for SHEREE prior to discharge. She is planning on going to the [facility] tomorrow with family as a 'celebration of life' for her, as she stated she does not want a . She met with Palliative Care, who will follow her out patient. She will also follow up with her PCP and discharge plan of care. RUFINO was able to work with the [employer] and [employer] to provide Shanell with a $250 visa gift card to help support her with this end of life wish to see the [facility], using a Palliative Care fund. Shanell was very grateful for this donation, and is looking forward to her trip. Patient/Family Education Needs: Review discharge instructions regarding activity levels and medications, discussion of self care needs and goals of care. Services Needed at Discharge: Home Health Care Services (resume HH [facility])
== END 2021-03-21 15:40 | disposition home or self-care (01) | DRG 683 ==
LOC: ER 20:32 → MS 21:26
PROVIDERS: Emergency Medicine; Admitting Provider Family Medicine; Emergency Provider Physician Assistant; PCP Physician Assistant Medical; Visit Provider Family Medicine
DX: N17.9 Acute kidney failure, unspecified (principal); C78.6 Secondary malignant neoplasm of retroperitoneum and peritoneum; C78.00 Secondary malignant neoplasm of unspecified lung; C79.51 Secondary malignant neoplasm of bone; Z51.5 Encounter for palliative care; F11.20 Opioid dependence, uncomplicated; C77.9 Secondary and unspecified malignant neoplasm of lymph node, unspecified; D61.818 Other pancytopenia; N13.1 Hydronephrosis with ureteral stricture, not elsewhere classified; C50.912 Malignant neoplasm of unspecified site of left female breast; F11.21 Opioid dependence, in remission; F90.2 Attention-deficit hyperactivity disorder, combined type; G89.3 Neoplasm related pain (acute) (chronic); F41.1 Generalized anxiety disorder; G47.00 Insomnia, unspecified; I97.2 Postmastectomy lymphedema syndrome; F17.210 Nicotine dependence, cigarettes, uncomplicated; E87.6 Hypokalemia; Z20.822 Contact with and (suspected) exposure to COVID-19; R50.9 Fever, unspecified; E86.0 Dehydration; Z93.2 Ileostomy status
CPT/HCPCS: 36415; 50432; 71250; 80048; 80053; 81025; 83690; 87635; 96361; 96365; 96366; 96367; 96375; 99285; 74176; 81003; 81015; 83735; 85025; 99223; 99232; 99239; J1644; J2270; J3480; J3490

== ENCOUNTER 2021-03-27 13:13 | Outpatient (CLI) | payer MEDICAID, SELFPAY ==
[2021-03-27 13:49] LABS: Albumin 4.1 g/dL (3.4-5.0); Anion Gap 9.6 mmol/L (3-11); BUN 16 mg/dL (7-18); CO2 33.4 mmol/L (21.0-32.0); CREATININE 2.1 mg/dL (0.55-1.02); Calcium 9.2 mg/dL (8.5-10.1); Chloride 96 mmol/L (98-107); Estimated GFR 26.65 (mL/min/1.73m2); Glucose 109 mg/dL (74-106); PHOSPHORUS 5.1 mg/dL (2.6-4.7); Sodium 139 mmol/L (136-145)
[2021-03-27 14:01] LABS: Potassium 2.8 mmol/L (3.5-5.1)
== END 2021-03-27 13:14 | disposition home or self-care (01) ==
LOC: LBO 13:15
PROVIDERS: PCP Physician Assistant Medical; Visit Provider Physician Assistant Medical
DX: N18.4 Chronic kidney disease, stage 4 (severe) (principal)
CPT/HCPCS: 36415; 80069